=== PATIENT | female | born 1995 | race Caucasian/White ===

== ENCOUNTER 2019-07-29 11:36 | Emergency (ER) | payer OTHER ==
--- NOTE | 2019-07-29 12:28 | ER ---
Nurse's Notes [facility] Name: Rocío Montiel Age: 23 yrs Sex: Female : 1995 Arrival Date: 07/29/2019 Time: 11:41 Bed 5 Private MD: Diagnosis: Person with feared health complaint in whom no diagnosis is made Presentation: 07/29 12:17 Chief complaint: Patient states: She traveled to [facility] [place] July 16, and returned aj1 on the . On the plane ride home one of her traveling companions coughed. She noticed a fever on the one time and then it resolved. Patient has had no other symptoms. States that her boss wanted her to get checked before returning to work. 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 Ebola Screen: Patient denies travel to an Ebola-affected area in the 21 days before illness onset. Initial Sepsis Screen: Does the patient meet any 2 criteria? No. Patient's initial sepsis screen is negative. Does the patient have a suspected source of infection? No. Patient's initial sepsis screen is negative. Risk Assessment: Do you want to hurt yourself or someone else? Patient reports no desire to harm self or others. 12:17 Method Of Arrival: Ambulatory aj1 12:30 Acuity: CHRISTOPHE 5 aj1 Triage Assessment: 12:30 General: Appears in no apparent distress. comfortable, Behavior is calm, cooperative, aj1 appropriate for age. Pain: Denies pain. - Immunization history:: Adult Immunizations up to date. - Social history:: Smoking status: Patient denies any tobacco usage or history of. Screenin:31 Abuse screen: Denies threats or abuse. Denies injuries from another. Nutritional aj1 screening: No deficits noted. Tuberculosis screening: Assessment: 12:31 General: Appears in no apparent distress. comfortable, Behavior is calm, cooperative, aj1 appropriate for age. Pain: Denies pain. Neuro: Level of Consciousness is awake, alert, obeys commands, Oriented to person, place, time, situation. Cardiovascular: Patient's skin is warm and dry. Respiratory: Airway is patent Respiratory effort is even, unlabored, Respiratory pattern is regular, symmetrical. GI: No signs and/or symptoms were reported involving the gastrointestinal system. : No signs and/or symptoms were reported regarding the genitourinary system. EENT: No signs and/or symptoms were reported regarding the EENT system. EENT: No signs and/or symptoms were reported regarding the EENT system. Derm: No signs and/or symptoms reported regarding the dermatologic system. Skin is pink, warm \T\ dry. normal. Musculoskeletal: No signs and/or symptoms reported regarding the musculoskeletal system. Circulation, motion, and sensation intact. Vital Signs: 12:08 BP 122 / 77; Pulse 68; Resp 16; Temp 98.5(O); Pulse Ox 98% on R/A; Weight 74.84 kg (R); jb1 ED Course: 11:41 Patient arrived in ED. mr 12:05 Charles Og PA is PHCP. [facility] 12:05 Quoc Preciado MD is Attending Physician. [facility] 12:30 Sandra Mendez RN is Primary Nurse. aj1 12:30 Triage completed. aj1 12:30 Arm band placed on. aj1 12:31 Patient has correct armband on for positive identification. aj1 12:31 No provider procedures requiring assistance completed. aj1 12:33 Patient did not have IV access during this emergency room visit. sv Administered Medications: No medications were administered Outcome: 12:27 Discharge ordered by MD. [facility] 12:33 Discharged to home ambulatory. sv 12:33 Condition: stable 12:33 Discharge instructions given to patient, Instructed on discharge instructions, follow up and referral plans. Demonstrated understanding of instructions, follow-up care. 12:33 Patient left the ED. sv Signatures: Ronald Parker jb1 Sandra Mendez RN RN aj Kathie Noonan RN RN sv Mickail, Joel, PA PA jmm Rivera, Mary mr
--- NOTE | 2019-07-29 12:28 | EDPHYS ---
Physician Documentation [facility] Name: Rocío Montiel Age: 23 yrs Sex: Female : 1995 Arrival Date: 07/29/2019 Time: 11:41 Bed 5 Private MD: ED Physician Quoc Preciado HPI: 07/29 12:10 This 23 yrs old Female presents to ER via Ambulatory with complaints of Check jmm up. 12:10 Needs work clearance. Onset: The symptoms/episode began/occurred at an unknown time. jmm This is a 23 year old female with no chronic medical conditions that presents to the ED with no complaints. Patient was sent from work due to recent travel. Patient returned from [facility] 4 days ago. The work has concern for coronavirus. patient denies cough, congestion. Denies any symptoms. . - Immunization history:: Adult Immunizations up to date. - Social history:: Smoking status: Patient denies any tobacco usage or history of. ROS: 12:10 Constitutional: Negative for fever, chills, and weight loss, Cardiovascular: Negative jmm for chest pain, palpitations, and edema, Respiratory: Negative for shortness of breath, cough, wheezing, and pleuritic chest pain, Abdomen/GI: Negative for abdominal pain, nausea, vomiting, diarrhea, and constipation. 12:10 All other systems are negative. Exam: 12:10 Constitutional: This is a well developed, well nourished patient who is awake, alert, jmm and in no acute distress. Head/Face: atraumatic. Eyes: EOMI, no conjunctival erythema appreciated ENT: Moist Mucus Membranes Neck: Trachea midline, Supple Chest/axilla: Normal chest wall appearance and motion. Cardiovascular: Regular rate and rhythm. No edema appreciated Respiratory: Normal respirations, no respiratory distress appreciated Abdomen/GI: Non distended, soft Back: Normal ROM Skin: General appearance color normal MS/ Extremity: Moves all extremities, no obvious deformities appreciated, no edema noted to the lower extremities Neuro: Awake and alert, normal gait Psych: Behavior is normal, Mood is normal, Patient is cooperative and pleasant Vital Signs: 12:08 BP 122 / 77; Pulse 68; Resp 16; Temp 98.5(O); Pulse Ox 98% on R/A; Weight 74.84 kg (R); jb1 MDM: 12:10 Patient medically screened. [facility] 12:24 Data reviewed: vital signs, nurses notes. Counseling: I had a detailed discussion with niurka the patient and/or guardian regarding: the historical points, exam findings, and any diagnostic results supporting the discharge/admit diagnosis, the need for outpatient follow up, to return to the emergency department if symptoms worsen or persist or if there are any questions or concerns that arise at home. ED course: [facility] is not listed as a country which requires quarantine from work. Patient has no clinical symptoms. VS WNL. . Administered Medications: No medications were administered Disposition: 16:21 Co-signature as Attending Physician, Quoc Preciado MD I agree with the assessment and [facility] plan of care. Disposition: 07/29/19 12:27 Discharged to Home. Impression: Person with feared health complaint in whom no diagnosis is made. - Condition is Stable. - Discharge Instructions: Form - Return To Work. - Medication Reconciliation Form, Thank You Letter, Antibiotic Education, Prescription Opioid Use form. - Work release form (07/29/19 12:42). eb - Follow up: Private Physician; When: 2 - 3 days; Reason: Recheck today's complaints, Continuance of care, Re-evaluation by your physician. Signatures: Sandra Mendez RN RN ajKathie Fajardo RN RN sv Anderson, Corey, MD MD cha Mickail, Joel, PA PA jmm Botello, Elizabeth eb Corrections: (The following items were deleted from the chart) 12:33 12:27 07/29/2019 12:27 Discharged to Home. Impression: Person with feared health sv complaint in whom no diagnosis is made. Condition is Stable. Forms are Medication Reconciliation Form, Thank You Letter, Antibiotic Education, Prescription Opioid Use. Follow up: Private Physician; When: 2 - 3 days; Reason: Recheck today's complaints, Continuance of care, Re-evaluation by your physician. niurka
[2019-07-29 12:37] VITALS: BP 122/77; TEMP 98.5; O2SAT 98
== END 2019-07-29 12:33 | disposition home or self-care (01) ==
LOC: ER 11:36
DX: Z71.1 Person with feared health complaint in whom no diagnosis is made (principal)
CPT/HCPCS: 99281